=== PATIENT | male | born 1960 | race Caucasian/White ===

== ENCOUNTER 2016-07-02 11:12 | Outpatient (RCR) | payer OTHER ==
[~2016-07-02 11:12] MED LIST: CEPHALEXIN500 M1 PO
== END 2016-09-30 | disposition still patient (30) ==
LOC: WSOT
DX: S62.524D Nondisplaced fracture of distal phalanx of right thumb, subsequent encounter for fracture with routine healing (principal); W20.8XXD Other cause of strike by thrown, projected or falling object, subsequent encounter